=== PATIENT | male | born 1950 | race Hispanic/Latino ===

== ENCOUNTER 2019-11-21 05:48 | Day surgery (SDC) | payer OTHER ==
[2019-11-20 10:18] VITALS: BP 190/73; PULSE 83; RESP 16; TEMP 97
[2019-11-21] VITALS (10 sets, daily range): BP systolic 126–168; BP diastolic 66–78; PULSE 66–80; RESP 16–18; TEMP 97.1–97.4
[~2019-11-21] VITALS: Ht 177.8 cm; Wt 110.4 kg
[2019-11-21] MEDS ORDERED: HEPARIN SODIUM 1000UNIT/ML 10ML VIAL ONE (07:22)
[2019-11-21] MEDS ORDERED: MIDAZOLAM HCL 1 MG/ML 2ML VIAL ONE (07:22)
[2019-11-21] MEDS ORDERED: SODIUM BICARB 50MEQ 50ML VIAL ONE (07:22)
[2019-11-21] MEDS ORDERED: IOHEXOL-350 50ML VIAL IV ONE (07:22)
[2019-11-21] MEDS ORDERED: IOHEXOL 350 MG/ML 100ML INFUS..BTL IV ONE (07:22)
[2019-11-21] MEDS ORDERED: FENTANYL CITRATE PF 50 MCG/1 ML 2ML VIAL ONE (07:23)
[2019-11-21] MEDS ORDERED: LIDOCAINE HCL 2% 20ML ONE (07:23)
[2019-11-21] MEDS ORDERED: SODIUM CHLORIDE 0.9% 1000ML 1,000 ML IV ONE (07:27)
[2019-11-21] MEDS ORDERED: NITROGLYCERIN 2 MG/VIAL VIAL IV ONE (07:53)
[2019-11-21] MEDS ORDERED: LABETALOL 20 MG/4 ML DISP.SYRIN IV ONE (08:37)
[2019-11-21] MEDS ORDERED: DiphenhydrAMINE HCL 50 MG/ML VIAL ONE (09:00)
[2019-11-21] MEDS ORDERED: METHYLPREDNISOLONE SOD SUCC 125MG/2ML VIAL ONE (09:00)
--- NOTE | 2019-11-21 10:40 | NUR ---
PT HIVES TO CHEST HAVE RESOLVED. NO WHEEZING. NO SOB. RESTING COMFORTABLY. NO HEMATOMA TO RT GROIN.
--- NOTE | 2019-11-21 12:00 | NUR ---
PTIN NO DISTRESS.. HIVES RESOLVED. SAT UP AND STOOD UP. BEDREST COMPLETED. NO HEMATOMA OR BLEDING RT GROIN
[2019-11-21] MEDS ORDERED: INSULIN HUMULIN R 100 UNIT/ML 3ML ONE (13:00)
[2019-11-21] MEDS ORDERED: INSULIN HUMULIN R 100 UNIT/ML 3ML SQ SCH (13:00)
--- NOTE | 2019-11-21 13:30 | NUR ---
DISCHARGED HOME IN NO DISTRESS. PRINTED AND VERBAL INSTRUCTION GIVEN TO PATIENT AND HIS . VERBALIZE UNDERSTANDING. NO HEMATOMA OR BLEEDING TO RT GROIN POST AMBULATION.
== END 2019-11-21 13:30 | disposition home or self-care (01) ==
LOC: DAH 05:48
PROVIDERS: ATTEND Internal Medicine Cardiovascular Disease
DX: I25.790 Atherosclerosis of other coronary artery bypass graft(s) with unstable angina pectoris (principal); I25.82 Chronic total occlusion of coronary artery; T82.855A Stenosis of coronary artery stent, initial encounter; I34.0 Nonrheumatic mitral (valve) insufficiency; E78.5 Hyperlipidemia, unspecified; E78.00 Pure hypercholesterolemia, unspecified; I10 Essential (primary) hypertension; E11.9 Type 2 diabetes mellitus without complications; K21.9 Gastro-esophageal reflux disease without esophagitis; E03.9 Hypothyroidism, unspecified; E66.9 Obesity, unspecified; Z79.899 Other long term (current) drug therapy; Z79.82 Long term (current) use of aspirin; Z79.84 Long term (current) use of oral hypoglycemic drugs; Z79.4 Long term (current) use of insulin; Z79.890 Hormone replacement therapy; Z95.0 Presence of cardiac pacemaker; Z98.890 Other specified postprocedural states; Z82.3 Family history of stroke; Z82.5 Family history of asthma and other chronic lower respiratory diseases; Z82.49 Family history of ischemic heart disease and other diseases of the circulatory system; Z68.34 Body mass index [BMI] 34.0-34.9, adult; Z79.01 Long term (current) use of anticoagulants; Y83.8 Other surgical procedures as the cause of abnormal reaction of the patient, or of later complication, without mention of misadventure at the time of the procedure
CPT/HCPCS: 36415; 71045; 80048; 81003; 82948 ×3; 85025; 85610; 85730; 93005; 93459; A4215; A4216; A4221; A4222; A4223 ×3; A4606; A4663; C1760; C1769; C1894 ×2; J1200; J1644; J1815; J2930; J3490 ×3; J7030; Q9965 ×2; Q9967 ×2

== ENCOUNTER → 2022-03-21 | Outpatient (CLI) | payer OTHER ==
[~2022-03-21] VITALS: Ht 701.5 cm; Wt 44.5 kg
[~2022-03-21] MED LIST: 0.9%NACL 1000ML 1,000 ML IV SCH; ASPI-1197 PO; CITRIC ACID/SODIUM CITRATE 30 ML UDCUP ONE; EMPA25TA PO; EZET10TA48 PO; HYDR25TA PO; ICOS1CAP PO; INSU100V12 SQ; INSU10VI3 SQ; INSU3INS5 SQ; LEVO125T11 PO; LOSA100T58 PO; LOSA50TA64 PO; METF-446 PO; METO-408 PO; MULT-1203 PO; ROSU40TA21 PO; TICA90TA PO
[2022-03-21 14:42] LABS: BASOPHILS % (AUTO) 0.6 % (0.0-5.0); EOSINOPHILS % (AUTO) 1.8 % (0.0-8.0); HEMATOCRIT 45.1 % (42-54); LYMPHOCYTES % (AUTO) 22.3 % (21.0-51.0); MEAN CORPUSCULAR HEMOGLOBIN 29.6 pg (27.0-33.0); MEAN CORPUSCULAR VOLUME 89.5 fL (79-99); MONOCYTES % (AUTO) 7.3 % (3.0-13.0); NEUTROPHILS % (AUTO) 67.6 % (40.0-77.0); PLATELET COUNT (AUTO) 248 K/uL (130-400); RED BLOOD CELL COUNT(AUTO) 5.04 MIL/uL (4.50-6.20); RED CELL DISTRIBUTION WIDTH 13.3 % (11.0-15.5); WHITE BLOOD COUNT (AUTO) 10.4 K/uL (4.8-10.8)
[2022-03-21 14:53] LABS: POTASSIUM 4.4 mmol/L (3.5-5.1)
[2022-03-21 14:57] LABS: INR 0.94 (0.85-1.15); PROTHROMBIN TIME 10.3 SEC (9.6-11.6)
[2022-03-21 14:58] LABS: PARTIAL THROMBOPLASTIN TIME 25.6 SEC (26.3-35.5)
[2022-03-21 15:01] LABS: B-TYPE NATRIURETIC PEPTIDE 26 pg/mL (0-100)
[2022-03-21 15:23] LABS: APPEARANCE,URINE CLEAR (CLEAR); BILIRUBIN,URINE NEGATIVE (NEGATIVE); COLOR,URINE LIGHT-YELLOW (YELLOW); GLUCOSE, URINE (UA) >=1000 mg/dL (NEGATIVE); KETONES,URINE NEGATIVE (NEGATIVE); LEUKOCYTE ESTERASE ,URINE NEGATIVE Leu/uL (NEGATIVE); NITRATE,URINE NEGATIVE (NEGATIVE); OCCULT BLOOD,URINE NEGATIVE (NEGATIVE); PROTEIN,URINE NEGATIVE (NEGATIVE); UROBILINOGEN,URINE 0.2 mg/dL (0.2-1.0)
[2022-03-21 15:55] LABS: RBC,URINE None Seen /HPF (0-1)
[2022-03-21 15:56] LABS: BACTERIA,URINE None Seen /HPF (None Seen); SQUAMOUS EPITHELIAL CELL,UR None Seen /HPF (0-2); WBC,URINE 0-1 /HPF (0-1)
[2022-03-22 11:15] VITALS: BP 158/71
== END | disposition home or self-care (01) ==
LOC: DAH 10:00 → EDSTATUS 14:00
PROVIDERS: ATTEND Internal Medicine Cardiovascular Disease
DX: Z01.810 Encounter for preprocedural cardiovascular examination (principal); I25.110 Atherosclerotic heart disease of native coronary artery with unstable angina pectoris; I25.2 Old myocardial infarction; Z79.01 Long term (current) use of anticoagulants
CPT/HCPCS: 36415; 71045; 80048; 81001; 83880; 85025; 85610; 85730; 93005; J7030

== ENCOUNTER 2024-01-09 08:50 | Day surgery (SDC) | payer OTHER ==
[~2024-01-09] VITALS: Ht 180.3 cm; Wt 94.3 kg
[2024-01-09] VITALS (10 sets, daily range): BP systolic 111–137; BP diastolic 57–99; PULSE 60–74; RESP 15–18; TEMP 97.3–97.9
[~2024-01-09 08:50] MED LIST changes: -0.9%NACL 1000ML 1,000 ML IV SCH; +BUPIvacaine/PF 0.5% 30ML VIAL ONE; -CITRIC ACID/SODIUM CITRATE 30 ML UDCUP ONE; -INSU10VI3 SQ; -INSU3INS5 SQ; +LIDOCAINE HCL 1% 20 ML VIAL ONE; -LOSA100T58 PO; +LOSA100T59 PO; -LOSA50TA64 PO; -MULT-1203 PO; -ROSU40TA21 PO; +ROSU40TA88 PO
[2024-01-09] MEDS: 0.9%NACL 1000ML 1,000 ML IV ONE (10:45)
[2024-01-09] MEDS ORDERED: NITR0.4T50 SL (11:04)
[2024-01-09] MEDS ORDERED: CLOP75TA32 PO (11:04)
[2024-01-09] MEDS ORDERED: proPOFol 10 MG/ML 20ML VIAL IV ONE (11:22)
== END 2024-01-09 12:45 | disposition home or self-care (01) ==
LOC: DAH 08:50 → ENDO 08:50
PROVIDERS: ATTEND Internal Medicine Gastroenterology
DX: K21.00 Gastro-esophageal reflux disease with esophagitis, without bleeding (principal); K29.50 Unspecified chronic gastritis without bleeding; K44.9 Diaphragmatic hernia without obstruction or gangrene; E78.00 Pure hypercholesterolemia, unspecified; I10 Essential (primary) hypertension; E11.9 Type 2 diabetes mellitus without complications; M81.0 Age-related osteoporosis without current pathological fracture; I25.2 Old myocardial infarction; Z95.1 Presence of aortocoronary bypass graft; Z90.49 Acquired absence of other specified parts of digestive tract; Z95.5 Presence of coronary angioplasty implant and graft; Z79.899 Other long term (current) drug therapy
CPT/HCPCS: 43239; 82948; J0665; J7030; J2704; A4620; A4215 ×2; A4223; A4222; A4221; A4663; A4606; J3490